=== PATIENT | female | born 1985 | race Caucasian/White ===

== ENCOUNTER → 2020-06-02 11:25 | Outpatient (BNVA) | payer OTHER, SELFPAY | PROVIDERS: Family Provider Family Medicine; PCP Family Medicine; Visit Provider Family Medicine | DX: R53.83 Other fatigue (principal); Z68.22 Body mass index [BMI] 22.0-22.9, adult; F17.219 Nicotine dependence, cigarettes, with unspecified nicotine-induced disorders | CPT/HCPCS: 84443; 85025 ==

== ENCOUNTER → 2020-09-29 13:44 | Outpatient (BNVA) | payer OTHER, SELFPAY | PROVIDERS: Family Provider Family Medicine; PCP Family Medicine; Visit Provider Family Medicine | DX: Z20.828 Contact with and (suspected) exposure to other viral communicable diseases (principal) | CPT/HCPCS: 87635 ==

== ENCOUNTER → 2021-07-13 08:37 | Outpatient (BNVA) | payer OTHER, SELFPAY | PROVIDERS: Family Provider Family Medicine; PCP Family Medicine; Visit Provider Family Medicine | DX: K59.04 Chronic idiopathic constipation (principal); R63.4 Abnormal weight loss | CPT/HCPCS: 80053; 82607; 84443; 85025 ==

== ENCOUNTER → 2022-09-30 08:44 | Outpatient (BNVA) | payer OTHER, SELFPAY | PROVIDERS: Family Provider Family Medicine; Visit Provider Nurse Practitioner | DX: Z20.822 Contact with and (suspected) exposure to COVID-19 (principal); Z11.52 Encounter for screening for COVID-19 | CPT/HCPCS: 87426 ==

== ENCOUNTER → 2023-10-24 14:45 | Outpatient (BNVA) | payer OTHER, SELFPAY | PROVIDERS: Family Provider Family Medicine; PCP Family Medicine; Visit Provider Family Medicine | DX: E55.9 Vitamin D deficiency, unspecified (principal); E53.8 Deficiency of other specified B group vitamins | CPT/HCPCS: 80053; 80061; 82306; 82607; 85025 ==

== ENCOUNTER → 2024-05-13 13:21 | Outpatient (BNVA) | payer OTHER, SELFPAY | PROVIDERS: Family Provider Family Medicine; PCP Family Medicine; Visit Provider Emergency Medicine | DX: R10.9 Unspecified abdominal pain (principal) | CPT/HCPCS: 80053; 81000; 83690; 85025 ==

== ENCOUNTER 2024-05-20 15:36 | Outpatient (CLI) | payer OTHER, SELFPAY ==
[2024-05-20] MEDS: iohexol 350 mg/mL 500 mL Btl (per mL) PO (16:23)
[2024-05-20] MEDS: iohexol 350 mg/mL 500 mL Btl (per mL) IV (16:58)
--- NOTE | 2024-05-20 17:00 | CTR_ITS ---
PROCEDURE INFORMATION: Exam: CT Abdomen And Pelvis With Contrast Exam date and time: 05/20/2024 4:49 PM Age: 38 years old Clinical indication: Acute; Prior surgery; Surgery date: 6+ months; Surgery type: Esure, tubaligation; Left side abdominal pain into pain, cramping and burning sensation. Diarrhea x 3 weeks; Additional info: Abdominal pain, left side, with contrast for suspected diverticulitis flare up. TECHNIQUE: Imaging protocol: Computed tomography of the abdomen and pelvis with contrast. Radiation optimization: All CT scans at this facility use at least one of these dose optimization techniques: automated exposure control; mA and/or kV adjustment per patient size (includes targeted exams where dose is matched to clinical indication); or iterative reconstruction. Contrast material: OMNIPAQUE 350; Contrast volume: 100 ml; Contrast route: INTRAVENOUS (IV); Other contrast: Oral, omnipaque 350, 50; COMPARISON: No relevant prior studies available. RADIATION DOSE METRICS: Total DLP (mGy-cm): 266.31 FINDINGS: Lungs: Unremarkable. Liver: Normal. No mass. Gallbladder and biliary ducts: Normal. No calcified stones. No ductal dilation. Pancreas: Normal. No ductal dilation. Spleen: Normal. No splenomegaly. Adrenal glands: Normal. No mass. Kidneys and ureters: Normal. No hydronephrosis. Stomach and bowel: Oral contrast reaches the colon. No focal bowel dilatation. Large colonic stool burden. Appendix: No evidence of appendicitis. Intraperitoneal space: Unremarkable. No free air. No significant fluid collection. Vasculature: Unremarkable. No abdominal aortic aneurysm. Lymph nodes: Unremarkable. No enlarged lymph nodes. Urinary bladder: Mild mural wall thickening of the bladder. Reproductive: Unremarkable as visualized. Bones/joints: Unremarkable. No acute fracture. Soft tissues: Small fat containing umbilical hernia. Other findings: Postsurgical changes within the pelvis. CT/CT abdomen pelvis w con* [id number] IMPRESSION: 1. No acute abdominopelvic findings. 2. Mild mural wall thickening of the bladder, which is likely due to underdistended state; if there is concern for cystitis correlation with urinalysis is recommended. 3. No evidence of small bowel obstruction. No CT evidence of acute diverticulitis. 4. Postsurgical changes of tubal ligation.
== END 2024-05-20 15:37 | disposition home or self-care (01) ==
LOC: RAD 15:38
PROVIDERS: PCP Family Medicine; Visit Provider Emergency Medicine
DX: R10.9 Unspecified abdominal pain (principal); K57.32 Diverticulitis of large intestine without perforation or abscess without bleeding; R93.49 Abnormal radiologic findings on diagnostic imaging of other urinary organs; Z98.890 Other specified postprocedural states; R93.89 Abnormal findings on diagnostic imaging of other specified body structures; K42.9 Umbilical hernia without obstruction or gangrene
CPT/HCPCS: 74177

== ENCOUNTER 2024-08-31 10:48 | Day surgery (SDC) | payer OTHER, SELFPAY ==
[2024-08-31 11:03] LABS: OR HCG Qualitative Urine Negative (Negative)
[2024-08-31 11:11] VITALS: BP 122/55; PULSE 84; RESP 17; TEMP 36.6; O2SAT 97; BMI 21.4
--- NOTE | 2024-08-31 11:26 | ANES.PREANE2 ---
Pre-Anesthetic Assessment Height/Weight: Height 1.63 m Weight 56.699 kg Temp Pulse Resp BP Pulse Ox O2 Del Method 97.8 F 84 17 122/55 97 Room Air 08/31/24 11:11 08/31/24 11:11 08/31/24 11:11 08/31/24 11:11 08/31/24 11:11 08/31/24 11:11 Preop Diagnosis: GERD, Screen Operation Date: 08/31/24 12:00 Proposed Procedures p EGD with Biopsy [id number] G0105, Z12.11 R12(Not Applicable) - Aftab Alexis MD s Colonoscopy(Not Applicable) - Aftab Alexis MD Familial anesthetic complications: none Was Beta Coleman taken within 24 hours: N/A Was Clonidine taken within 24 hours: N/A Last intake: Intake Last Liquid Date 08/30/24 Last Liquid Time 20:00 Last Solid Date 08/29/24 Last Solid Time 18:30 Social Tobacco and No alcohol 0.5 pack(s) per day 22 pack years Exam alert, oriented x 3, clear to auscultation bilaterally and regular rate & rhythm Airway Cervical ROM: within normal limits Mallampati: Class II Dentition: full Pulmonary None reported CV/HEM None reported None reported Hepatic None reported GI Gastroesophageal Reflux Disease Metabolic None reported Musc/skel None reported Neuropsych Anxiety Anesthetic Plan ASA status: 3 Anesthesia: MAC Risk of > 500 ml blood loss (7ml/kg in children): No Medications/Allergies Home Medications ?Medication ?Instructions ?Recorded ?Confirmed ?Last Taken ?Type famotidine 40 mg tablet 40 mg PO DAILY #90 tabs 08/27/24 08/30/24 08/31/24 06:30 Rx fluoxetine 20 mg capsule (Prozac) 20 mg PO DAILY #60 caps 08/27/24 08/30/24 08/31/24 06:30 Rx Allergies Allergy/AdvReac Type Severity Reaction Status Date / Time adhesive Allergy ALGY-Rash Verified 08/31/24 11:16 Current Medications Generic Name Dose Route Start Last Admin Trade Name Freq PRN Reason Stop Dose Admin Sodium Chloride 1,000 mls @ 15 mls/hr 08/31/24 10:50 08/31/24 11:16 Sodium Chloride 0.9% IV 09/01/24 10:49 15 mls/hr .Q24H PRN Administration COLONOSCOPY FLUIDS PFSH Anesthesia Medical History (Updated 08/27/24 @ 15:05 by Juan Manuel Ruelas MD) Seasonal affective disorder Irritable bowel syndrome with constipation Vitamin B12 deficiency Vitamin D deficiency Encounter for Essure implantation 2008 Well woman exam with routine gynecological exam Surgical History S/P tonsillectomy Family History Family/Other Cancer maternal aunt, had hysterectomy, unsure why Social History Smoking and tobacco/nicotine status: current every day tobacco/nicotine user cigarettes Packs smoked per day: 1 Alcohol intake: never Substance/Drug Use: never Female Reproductive History Date of last menstrual period: 08/23/24
--- NOTE | 2024-08-31 11:32 | W.PM.OPSUD ---
Surgery/Procedure H&P Update DATE OF PROCEDURE: August 31, 2024 DATE H&P PERFORMED: 08/02/24 H&P UPDATE INFORMATION: I have reviewed H&P completed within last 30 days, I have examined patient prior to procedure and No changes to prior documentation PREOP DIAGNOSIS: GERD, Screen PLANNED PROCEDURE: Operation Date: 08/31/24 12:00 Proposed Procedures p EGD with Biopsy [id number] G0105, Z12.11 R12(Not Applicable) - Aftab Alexis MD s Colonoscopy(Not Applicable) - Aftab Alexis MD
[2024-08-31 12:12] VITALS: BP 96/55; PULSE 72; RESP 14; TEMP 36.8; O2SAT 97
--- NOTE | 2024-08-31 12:26 | PC.NURSE ---
1220 PT CO CHEST PAIN STATING IT IS CENTRAL CHEST SHOOTING SHARP PAIN TO LEFT SIDE. ANESTHESIA CALLED, EKG ORDER PLACED. 1227 PT NOW STATE IT WAS NEVER CHEST PAIN AND IS ONLY STABBING IN RIGHT SIDE NOW. ANESTHESIA STILL PROCEEDING W EKG.
--- NOTE | 2024-08-31 12:29 | PC.NURSE ---
PT ALSO PLACED ON TELE.
--- NOTE | 2024-08-31 12:33 | ECG_ITS ---
[facility] Test Date: 2024-08-31 Pat Name: Feng Richter Department: Room: Gender: Female Direct Response Consultant: : 1985 Requested By: Francois Dill Order Number: [id number] Jose MD: Iker Combs M.D. Measurements Intervals [place] Rate: 66 P: 61 SC: 134 QRS: 15 QRSD: 92 T: 19 QT: 386 QTc: 406 Interpretive Statements SINUS RHYTHM LOW QRS VOLTAGE IN PRECORDIAL LEADS [QRS DEFLECTION < 1.0 mV IN CHEST LEADS] POSSIBLE RIGHT VENTRICULAR CONDUCTION DELAY [RSR (QR) IN V1/V2] No previous ECG available for comparison Electronically Signed On 08-31-2024 14:57:43 CDT by Iker Combs M.D. [id number]
--- NOTE | 2024-08-31 12:34 | PC.NURSE ---
RESP HERE DOING EKG
--- NOTE | 2024-08-31 12:45 | PC.NURSE ---
AFTER PASSING GAS PT STATES PAIN IS A LOT BETTER. PT UP TO USE BATHROOM
[2024-08-31 12:51] VITALS: BP 114/55; PULSE 70; RESP 16; O2SAT 98
--- NOTE | 2024-08-31 13:05 | ANE.PACU2 ---
Inpatient post-anesthesia follow up: Airway intact: Yes Vital signs: Temperature 98.2 F Pulse Rate 70 Respiratory Rate 16 Blood Pressure 114/55 Pulse Oximetry 98 Oxygen Delivery Me thod Room Air Oxygen Flow Rate Fraction of Inspir ed Oxygen Hydration adequate: Yes Nausea and vomiting: No Pain level: Initially had chest pain, EKG showing sinus rhythm without any ST changes. Mental status: Baseline
== END 2024-08-31 13:13 | disposition home or self-care (01) ==
PROVIDERS: Student in an Organized Health Care Education/Training Program; PCP Family Medicine; Visit Provider Student in an Organized Health Care Education/Training Program
PROC: 0DJ08ZZ Inspection of Upper Intestinal Tract, Via Natural or Artificial Opening Endoscopic (ICD-10-PCS; principal; 2024-08-31 12:00)
PROC: 0DJD8ZZ Inspection of Lower Intestinal Tract, Via Natural or Artificial Opening Endoscopic (ICD-10-PCS; CPT 45378; 2024-08-31 12:00)
DX: Z12.11 Encounter for screening for malignant neoplasm of colon (principal); K21.9 Gastro-esophageal reflux disease without esophagitis; K29.80 Duodenitis without bleeding; F17.210 Nicotine dependence, cigarettes, uncomplicated; K58.2 Mixed irritable bowel syndrome; Z79.899 Other long term (current) drug therapy; Z91.09 Other allergy status, other than to drugs and biological substances
CPT/HCPCS: 43239; 45378; 81025; 88305; 93005; J2704; J7030

== ENCOUNTER 2024-12-21 16:21 | Emergency (ER) | payer OTHER, SELFPAY ==
--- NOTE | 2024-12-21 16:23 | XRR_ITS ---
PROCEDURE INFORMATION: Exam: XR Chest Exam date and time: 12/21/2024 4:29 PM Age: 39 years old Clinical indication: Pain; Chest pressure; Additional info: Chest pain TECHNIQUE: Imaging protocol: Radiologic exam of the chest. Views: 1 view. COMPARISON: CT abdomen pelvis w con* [id number] 05/20/2024 4:49 PM FINDINGS: Lungs: Unremarkable. No consolidation. Pleural spaces: Unremarkable. No pleural effusion. No pneumothorax. Heart/Mediastinum: Unremarkable. No cardiomegaly. Bones/joints: Unremarkable. XR/XR chest 1V portable [id number] IMPRESSION: No acute findings.
--- OUTSIDE RECORDS SUMMARY | 2024-12-21 16:25 | XMS_ITS | Encounter Summary ---
Author Organization [facility] Address [address] [place] [address] Care Team Providers Care Wig Stylist Name Role Phone Unavailable Primary Care Provider Unavailabl e Encounter Details Date Type Department Care Team (Late st Contact Info) Description 12/15/2024 External Device Data STL ABSTRACTION Provider, Abstract NO ADDRESS ON FILE Social History Tobacco Use Types Packs/Day Years Used Date Smoking Tobacco: Never Assessed Comments Unknown Sex and Gender Information Value Date Recorded Sex Assigned at Not on file Legal Sex Female 9:36 AM CDT Gender Identity Not on file Sexual Orientation Not on file documented as of this encounter Plan of Treatment Upcoming Encounters Date Type Department Care Team (Late st Contact Info) Description 04/18/2025 3:00 PM SPINNERET PERSON Office Visit [facility] [place] [address] [place] [address] Tawny Ashton PA-C [address] [place] [phone] documented as of this encounter Visit Diagnoses Not on filedocumented in this encounter
--- OUTSIDE RECORDS SUMMARY | 2024-12-21 16:25 | XMS_ITS | Encounter Summary ---
Author Organization [facility] Address [address] [place] [address] Care Team Providers Care Baccarat Dealer Name Role Phone Unavailable Primary Care Provider Unavailabl e Encounter Details Date Type Department Care Team (Late st Contact Info) Description 12/10/2024 Results Follow-Up [address] [place] [address] Tawny Ashton PA-C [address] [facility] [address] [place] [address] ALPHA-GAL PANEL Social History Tobacco Use Types Packs/Day Years [...] st Contact Info) Description 04/18/2025 3:00 PM MARKETING PLANNER Office Visit [facility] [place] [address] Tawny Ashton PA-C [address] [place] [address] documented as of this encounter Visit Diagnoses Not on filedocumented in this encounter
--- OUTSIDE RECORDS SUMMARY | 2024-12-21 16:25 | XMS_ITS | Clinical Summary ---
Author Organization [facility] Address [address] [place] [address] Phone Care Team Providers Care Mica Miner Name Role Phone Unavailable Primary Care Provider Unavailabl e Allergies Active Allergy Reactions Criticality Noted Date Comments Latex Rash Low 12/06/2024 Medications FLUoxetine (PROzac) 20 mg capsule 20 mg. 5 Active omeprazole (PriLOSEC) 40 mg Capsule, Delayed Release(E.C.) 40 mg. Active ondansetron (ZOFRAN ODT) 4 mg Tablet, Rapid Dissolve prn 5 Active sucralfate (CARAFATE) 1 gram tablet 1 Gram. 5 Active famotidine (PEPCID) 40 mg tabletIndication s:Duodenitis,Irr itable bowel syndrome with constipation Take 1 Tablet (40 mg) by mouth 3 times daily. 90 Tablet 2 5 Active famotidine (PEPCID) 20 mg tablet Take 1 Tablet by mouth daily. 5 025 Discontinued Active Problems No known active problems Encounters Date Type Department Care Team Description 12/15/2024 External Device Data STL ABSTRACTION Provider, Abstract 12/14/2024 External Device Data STL ABSTRACTION Provider, Abstract 12/10/2024 Results Follow-Up [facility]- [place] [address] [place] [address] Tawny Ashton PA-C ALPHA-GAL PANEL 12/08/2024 External Device Data STL ABSTRACTION Provider, Abstract 12/08/2024 External Device Data STL ABSTRACTION Provider, Abstract 12/07/2024 External Device Data STL ABSTRACTION Provider, Abstract 12/06/2024 3:30 PM CDT Office Visit [address] [place] [address] Tawny Ashton PA-C Duodenitis (Primary Dx); Irritable bowel syndrome with constipation 11/05/2024 Orders Only [address] [place] [address] Juan Manuel Ruelas MD Chronic peptic ulcer, site unspecified, without hemorrhage or perforation (Primary Dx); Chronic or unspecified gastrojejunal ulcer with hemorrhage from Last 3 Months Social History Tobacco Use Types Packs/Day Years Used Date Smoking Tobacco: Never Assessed Comments Unknown Sex and Gender Information Value Date Recorded Sex Assigned at Not on file Legal Sex Female 9:36 AM CDT Gender Identity Not on file Sexual Orientation Not on file Last Filed Vital Signs Vital Sign Reading Time Taken Comments Blood Pressure 108/60 12/06/2024 3:13 PM CDT Pulse 84 12/06/2024 3:13 PM CDT Temperature - - Respiratory Rate - - Oxygen Saturation - - Inhaled Oxygen Concentration - - Weight 53.1 kg (117 lb) 12/06/2024 3:13 PM CDT Height 162.6 cm (5' 4 ) 12/06/2024 3:13 PM CDT Body Mass Index 20.08 12/06/2024 3:13 PM CDT Plan of Treatment Upcoming Encounters Date Type Department Care Team (Late st Contact Info) Description 04/18/2025 3:00 PM STAFF COUNSEL [facility] [place] [address] Tawny Ashton PA-C [address] [place] [phone] Health Maintenance Due Date Last Done Comments DTAP/TDAP/TD VACCINES (1 - Tdap) 08/23/2002 HEPATITIS B VACCINES (1 of 3 - 19+ 3-dose series) 08/23/2002 HPV/Cotest (21-29) 08/23/2004 HPV VACCINES (1 - 3-dose SCDM series) 08/23/2010 CERVICAL CANCER SCREENING 08/23/2013 HPV/Cotest (30-65) 08/23/2013 PAP SMEAR 08/23/2013 BREAST CANCER SCREENING 2023 INFLUENZA VACCINE (#1) 2024 COVID-19 Vaccine ( season) 10/18/202409/2020, 09/13/2020 Procedures Procedure Name Priority Date/Time Associated Diagnosis Comments ALPHA-GAL PANEL Routine 12/06/2024 4:08 PM CDT Duodenitis Irritable bowel syndrome with constipation from Last 3 Months Results * (ABNORMAL) ALPHA-GAL PANEL (12/06/2024 4:08 PM CDT) ALLERGEN BEEF 0.13(H) kU/L [facility], ALLERGEN BEEF (F27) CLASS 0/1 [facility], HAWLEY (F88) IGE <0.10 kU/L [facility], ALLERGEN HAWLEY (F88) CLASS 0 [facility], ALLERGEN PORK <0.10 kU/L [facility], ALLERGEN PORK (F26) CLASS 0 [facility], GALACTOSE - ALPHA -1, 3 - GALACTOSE, IGE <0.10 <0.10 kU/L [facility], Comment: Results above 0.1 kU/L indicate an allergen-specific IgE sensitization to txvtnhlyj-m-3,3-galactose, and such patients are at risk for delayed allergic reactions following beef, pork, or hawley consumption. Circulating IgE antibodies may remain undetectable despite a convincing clinical history because these antibodies may be directed towards allergens revealed or altered during industrial processing, cooking, or digestion and therefore do not exist in the original food for which the patient is tested. Sometimes individuals diagnosed with chronic urticaria may develop IgE antibodies directed against human thyroglobulin. Such antibodies may cross-react with the bovine thyroglobulin used in ImmunoCAP(R) Allergen o215, alpha-Gal, leading to a false-positive test result. A definitive diagnosis should be based on the evaluation of both clinical and laboratory findings and not on any single diagnostic method. Additional information can be found at [email or web address] [email or web address] PANEL INTERP [facility], Comment: Specific Level of Allergen IGE Class kU/L Specific IGE Antibody ----- --------- 0 <0.10 Absent/Undetectable 0/1 0.10-0.34 Very Low Level 1 0.35-0.69 Low Level 2 0.70-3.49 Moderate Level 3 3.50-17.4 High Level 4 17.5-49.9 Very High Level 5 50-100 Very High Level 6 >100 Very High Level The clinical relevance of allergen results of 0.10-0.34 kU/L are undetermined and intended for specialist use. Allergens denoted with a include results using one or more analyte specific reagents. In those cases, the test was developed and its analytical performance characteristics have been determined by [facility]. It has not been cleared or approved by the U.S. Food and Drug Administration. This assay has been validated pursuant to the CLIA regulations and is used for clinical purposes. FASTING:NO FASTING: NO Test Performed at: [facility], [address] [place] [address] Elvia Lundberg MD,PhD,DIPAK [place] Blood 12/06/2024 4:08 PM CDT 12/06/2024 4:10 PM CDT us Tawny Ashton PA-C CHEMISTRY ORDERABLES Final Res ult [facility] [phone] [facility], [address] [place] [address] from Last 3 Months Insurance [facility]
--- OUTSIDE RECORDS SUMMARY | 2024-12-21 16:25 | XMS_ITS | Encounter Summary ---
Author Organization [facility] Address [address] [place] [address] Care Team Providers Care Mannequin Decorator Name Role Phone Unavailable Primary Care Provider Unavailabl e Encounter Details Date Type Department Care Team (Late st Contact Info) Description 12/14/2024 External Device Data STL ABSTRACTION Provider, [...] st Contact Info) Description 04/18/2025 3:00 PM AP PROCESSOR Office Visit [facility]- [place] [address] [place] [address] Tawny Ashton PA-C [address] [place] [phone] documented as of this encounter Visit Diagnoses Not on filedocumented in this encounter
[2024-12-21 16:37] VITALS: BP 113/64; PULSE 81; TEMP 36.7; O2SAT 100
--- NOTE | 2024-12-21 16:41 | ECG_ITS ---
[facility] Date: 2024-12-21 Pat Name: Feng Richter Department: Room: Gender: Female Transport Assistant: : 1985 Requested By: Ave Falk Order Number: [id number] Garcia MD: Allyson Hinojosa M.D. Measurements Intervals [place] Rate: 75 P: 56 IN: 120 QRS: 54 QRSD: 111 T: 54 QT: 351 QTc: 394 Interpretive Statements SINUS RHYTHM INCOMPLETE RIGHT BUNDLE BRANCH BLOCK [90+ ms QRS DURATION, TERMINAL R IN V1/V2, 40+ ms S IN I/aVL/V4/V5/V6] Compared to ECG 08/31/2024 12:33:21 Incomplete right bundle-branch block now present Electronically Signed On 12-21-2024 21:51:05 CIVIL MANAGER by Allyson Hinojosa M.D. [email or web address]
--- NOTE | 2024-12-21 17:12 | W.ED.CHESTPA ---
HPI - Chest Pain General: Chief Complaint: Chest Pain Stated Complaint: Chest Pain Time Seen by Provider: 12/21/24 16:47 History of Present Illness: 39-year-old female with a history of anxiety, peptic ulcer disease, seasonal affective disorder, irritable bowel syndrome with constipation, and recently diagnosed duodenitis with an EGD who presents to the emergency room with sharp central mid chest pain. She says this started a couple of months ago immediately after she had the EGD. Said after it started she had some sharp pains in it would come and go and has become more intense and more frequent. She went to see her charge entry clerk and they sent her here to be evaluated for other causes of chest pain. No cough. No fever. No nausea or vomiting. No diaphoresis. Related Data Previous Rx's ?Medication ?Instructions ?Recorded fluoxetine 20 mg capsule (Prozac) 20 mg PO DAILY #90 caps 10/13/24 famotidine 40 mg tablet 40 mg PO BID #84 tabs 11/04/24 omeprazole 40 mg capsule,delayed 40 mg PO BID #84 caps 11/04/24 release ondansetron 4 mg disintegrating 4 mg PO Q8H PRN nausea and 11/04/24 tablet vomiting #60 tabs sucralfate 1 gram tablet (Carafate) 1 g PO BID 6 weeks #60 tabs 11/04/24 Allergies Allergy/AdvReac Type Severity Reaction Status Date / Time adhesive Allergy ALGY-Rash Verified 12/21/24 16:45 Review of Systems Narrative: Constitutional symptoms: Negative except as documented in HPI. Skin symptoms: Negative except as documented in HPI. Eye symptoms: Negative except as documented in HPI. ENMT symptoms: Negative except as documented in HPI. Respiratory symptoms: Negative except as documented in HPI. Cardiovascular symptoms: Negative except as documented in HPI. Gastrointestinal symptoms: Negative except as documented in HPI. Genitourinary symptoms: Negative except as documented in HPI. Musculoskeletal symptoms: Negative except as documented in HPI. Neurologic symptoms: Negative except as documented in HPI. Psychiatric symptoms: Negative except as documented in HPI. Endocrine symptoms: Negative except as documented in HPI. [facility] PFSH: Medical History (Updated 12/21/24 @ 18:[address]hry MD) Seasonal affective disorder Irritable bowel syndrome with constipation Vitamin B12 deficiency Vitamin D deficiency Encounter for Essure implantation 2009 Well woman exam with routine gynecological exam Surgical History S/P tonsillectomy Family History Family/Other Cancer maternal aunt, had hysterectomy, unsure why Social History Smoking and tobacco/nicotine status: current every day tobacco/nicotine user cigarettes Packs smoked per day: 1 Alcohol intake: never Substance/Drug Use: never Physical Exam Narrative: EXAM NARRATIVE: General: Alert, no acute distress. Skin: Warm, dry. Head: Normocephalic, atraumatic. Neck: Supple, trachea midline. Eye: Extraocular movements are intact. Ears, nose, mouth and throat: mucosa moist. Cardiovascular: Regular, Normal peripheral perfusion. Respiratory: Lungs are clear to auscultation, respirations are non-labored, breath sounds are equal, Symmetrical chest wall expansion. Gastrointestinal: Soft, Nontender, Non distended Musculoskeletal: Normal ROM, no deformity. Neurological: Alert and oriented, No focal neurological deficit observed. Psychiatric: Cooperative, appropriate mood & affect. Course Vital Signs: Vital signs: Vital Signs Temperature 98.1 F 12/21/24 16:37 Pulse Rate 72 12/21/24 17:22 Blood Pressure 116/46 12/21/24 17:22 Pulse Oximetry 99 12/21/24 17:22 Oxygen Delivery Me thod Room Air 12/21/24 17:22 MDM - Chest Pain Medical Decision Making Medical decision making: Patient's reason for coming to the emergency room: Chest pain Social determinants: Patient employed and I reviewed the patient's medical record. 39-year-old female with a history of anxiety, peptic ulcer disease, seasonal affective disorder, irritable bowel syndrome with constipation, and recently diagnosed duodenitis with an EGD I reviewed the patient's current home meds Alternate historians: None needed. Patient history sufficed Differential diagnosis for patient with chest pain includes but is not limited to and based on the above HPI, review of systems and physical exam: Pneumonia. unstable angina. angina. Acute coronary syndrome / [place]. Pulmonary embolism. Costochondritis / musculoskeletal. Pleurisy. Pericarditis. Esophageal spasm. Pancreatitis. Cholecystitis. Orders placed to evaluate differential diagnosis based on the above differential, HPI and physical exam EKG: Time 1641. Rate 75. Normal sinus rhythm, No ST-T changes, no ectopy, normal PA & QRS intervals, This was reviewed and interpreted by myself the ER physician at 1647 Chest x-ray: No acute process. No infiltrate. No pneumothorax. This was reviewed and interpreted by myself the emergency room physician. I also reviewed the radiology report. Lab Review: Laboratory results were reviewed and interpreted by myself the emergency room physician. No leukocytosis. No anemia. No renal failure. Liver enzymes are normal. Troponin is negative. Assessment of risk: Level of risk: Mild Hospitalization considerations: Patient has low heart score and findings are consistent with acute coronary syndrome so no consideration of hospitalization today Reexamination: Patient remained stable. No increased work of breathing. No altered mental status. No focal motor deficits. Assessment and plan: Noncardiac chest pain - Discharged home - Discussed plan with patient. Answered any questions. - Evaluation and treatment of this problem were appropriate in the emergency setting. Lab Data 12/21/24 16:54 12/21/24 16:54 Radiology Impressions Chest X-Ray 12/21/24 16:23 IMPRESSION: No acute findings. Laboratory Results WBC 4.69 10^3/uL (3.29-11.43) 12/21/24 16:54 RBC 4.14 10^6/uL (3.85-5.65) 12/21/24 16:54 Hgb 10.90 g/dL (11.27-16.99) L 12/21/24 16:54 Hct 34.4 % (36-47) L 12/21/24 16:54 MCV 83.1 fl (85-98) L 12/21/24 16:54 MCH 26.3 pg (27-33) L 12/21/24 16:54 MCHC 31.7 g/dL (30-55) 12/21/24 16:54 RDW 13.7 % (12.1-15.1) 12/21/24 16:54 Plt Count 263 10^3/cmm (157-399) 12/21/24 16:54 MPV 10.9 fL (7.4-10.4) H 12/21/24 16:54 Neut % (Auto) 51.4 % 12/21/24 16:54 Lymph % (Auto) 31.8 % 12/21/24 16:54 [place] % (Auto) 13.9 % 12/21/24 16:54 Eos % (Auto) 1.9 % 12/21/24 16:54 Baso % (Auto) 0.6 % 12/21/24 16:54 Neut # (Auto) 2.41 10^3/uL (1.8-7.7) 12/21/24 16:54 Lymph # (Auto) 1.5 10^3/uL (0.8-4.8) 12/21/24 16:54 [place] # (Auto) 0.7 10^3/uL (0.2-0.9) 12/21/24 16:54 Eos # (Auto) 0.1 10^3/uL (0.0-0.8) 12/21/24 16:54 Baso # (Auto) 0.0 10^3/uL (0.0-0.1) 12/21/24 16:54 Nucleated RBC % (auto) 0 % 12/21/24 16:54 Nucleated RBCs # 0.0 /100WBC 12/21/24 16:54 Sodium 137 mmol/L (136-145) 12/21/24 16:54 Potassium 3.6 mmol/L (3.5-5.1) 12/21/24 16:54 Chloride 103 mmol/L (98-107) 12/21/24 16:54 Carbon Dioxide 22 mmol/L (22-29) 12/21/24 16:54 Anion Gap 15.6 (5-19) 12/21/24 16:54 BUN 9 mg/dL (6-20) 12/21/24 16:54 Creatinine 0.6 mg/dL (0.5-0.9) 12/21/24 16:54 GFR Calculation 110.2 mL/min (90-130) 12/21/24 16:54 Glucose 75 mg/dL (65-115) 12/21/24 16:54 Calculated Osmolality 281 mOsm/kg (285-295) L 12/21/24 16:54 Calcium 9.0 mg/dL (8.5-10.5) 12/21/24 16:54 Total Bilirubin 0.2 mg/dL (0.15-1.2) 12/21/24 16:54 AST 18 U/L (0-32) 12/21/24 16:54 ALT 14 U/L (0-33) 12/21/24 16:54 Alkaline Phosphatase 62 U/L (35-105) 12/21/24 16:54 Troponin T Baseline < 6 ng/L (0-10) 12/21/24 16:54 NT-Pro-B Natriuret Pep 90 pg/mL (0-125) 12/21/24 16:54 Total Protein 7.0 g/dL (6.6-8.7) 12/21/24 16:54 Albumin 4.5 g/dL (3.5-5.2) 12/21/24 16:54 Globulin 2.5 g/dL (1.3-4.6) 12/21/24 16:54 All radiology interpretation(s) finalized by discharge Clincial Decision Support The following clinical decision support tools were used to aid in care of the patient HEART Score -> History: Slightly Suspicous, EKG: Normal, Age: Less than 45 yrs, Risk Factors: No Risk Factors Known, Troponin: Baseline Trop <16 ng/L. Resulting HEART Score: 0. Discharge Plan Discharge Patient Disposition: Home Clinical Impression: Non-cardiac chest pain Condition: Stable Prescriptions: No Action sucralfate [Carafate] 1 gram tablet 1 g PO BID 42 Days Qty: 60 1RF omeprazole 40 mg capsule,delayed release(DR/EC) 40 mg PO BID Qty: 84 1RF famotidine 40 mg tablet 40 mg PO BID Qty: 84 1RF ondansetron 4 mg tablet,disintegrating 4 mg PO Q8H PRN (Reason: nausea and vomiting) Qty: 60 1RF fluoxetine [Prozac] 20 mg capsule 20 mg PO DAILY Qty: 90 1RF Discharge Orders: Discharge ED (Routine); Ordered 12/21/24 Ordered By: Ave Chaudhry Referrals: Juan Manuel Ruelas MD [Primary Care Provider, Family Practice] Discharge Diet: Usual diet Discharge Activity: Increase activity as tolerated Patient Instructions: Noncardiac Chest Pain (ED), Opioid Safety, Pain Management, Patient Portal & Karen Instructions Print Language: Irish Coding Level of Care Code ED [employer] Studies Professor for Chg Fwd Heart Score HEART Score Components History: Slightly Suspicous EKG: Normal Age: Less than 45 yrs Risk Factors: No Risk Factors Known Troponin: Baseline Trop <16 ng/L HEART Score RESULT HEART Score: 0
[2024-12-21 17:15] LABS: Hematocrit 34.4 % (36-47); Hemoglobin 10.90 g/dL (11.27-16.99); Mean Corpuscular HGB Conc 31.7 g/dL (30-55); Mean Corpuscular Hemoglobin 26.3 pg (27-33); Mean Corpuscular Volume 83.1 fl (85-98); Nucleated Red Blood Cells % 0 %; Platelet Count 263 10^3/cmm (157-399); Red Blood Count 4.14 10^6/uL (3.85-5.65); White Blood Count 4.69 10^3/uL (3.29-11.43)
[2024-12-21 17:22] VITALS: BP 116/46; PULSE 72; O2SAT 99
[2024-12-21 17:48] LABS: Troponin(5th) Baseline < 6 ng/L (0-10)
[2024-12-21 17:57] LABS: Alanine Aminotransferase 14 U/L (0-33); Albumin Level 4.5 g/dL (3.5-5.2); Alkaline Phosphatase 62 U/L (35-105); Anion Gap 15.6 (5-19); Aspartate Amino Transferase 18 U/L (0-32); Blood Urea Nitrogen 9 mg/dL (6-20); Calcium 9.0 mg/dL (8.5-10.5); Carbon Dioxide 22 mmol/L (22-29); Chloride 103 mmol/L (98-107); Creatinine Clr Calc Pharmacy 103.8676; Globulin 2.5 g/dL (1.3-4.6); Glucose 75 mg/dL (65-115); NT Pro B Type Natriuretic Pept 90 pg/mL (0-125); Osmolality Calculated 281 mOsm/kg (285-295); Potassium 3.6 mmol/L (3.5-5.1); Sodium 137 mmol/L (136-145); Total Protein 7.0 g/dL (6.6-8.7)
[2024-12-21 18:00] VITALS: PULSE 79; O2SAT 99
[2024-12-21 18:30] VITALS: PULSE 77; O2SAT 97
[2024-12-21] MEDS: lidocaine 2% viscous 15 ML, aluminum-mag hydrox-simethicon 30 ML, sucralfate oral liq 1 GM PO (18:40)
[2024-12-21 18:51] VITALS: BP 116/46; PULSE 84; O2SAT 99
== END 2024-12-21 18:52 | disposition home or self-care (01) ==
PROVIDERS: Emergency Provider Emergency Medicine; PCP Family Medicine
DX: R07.89 Other chest pain (principal); F17.210 Nicotine dependence, cigarettes, uncomplicated
CPT/HCPCS: 36415; 71045; 80053; 83880; 84484; 85025; 93005; 99285; J9999

== ENCOUNTER 2025-01-10 06:21 | Outpatient (CLI) | payer OTHER, SELFPAY ==
--- NOTE | 2025-01-10 06:30 | USR_ITS ---
PROCEDURE INFORMATION: Exam: US Abdomen, Limited; Right Upper Quadrant Exam date and time: 01/10/2025 06:40 AM Age: 39 years old Clinical indication: Abdominal pain; Localized; Right upper quadrant (ruq); Additional info: Right upper quadrant pain TECHNIQUE: Imaging protocol: Real time ultrasound of the abdomen with image documentation. Limited exam focused on the right upper quadrant. COMPARISON: CT abdomen pelvis w con* [id number] 05/20/2024 04:49 PM FINDINGS: Liver: Normal. No masses. Gallbladder: Normal. No gallstones. There is no gallbladder wall thickening. Biliary ducts: Normal. No stones. No dilation. Pancreas: Visualized pancreas is unremarkable. Right kidney: Normal. No hydronephrosis. US/US gall bladder [id number] IMPRESSION: No acute findings.
== END 2025-01-10 06:22 | disposition home or self-care (01) ==
PROVIDERS: PCP Family Medicine; Visit Provider Family Medicine
DX: R10.11 Right upper quadrant pain (principal); G89.29 Other chronic pain
CPT/HCPCS: 76705